=== PATIENT | male | born 1975 | race Caucasian/White ===

== ENCOUNTER 2020-04-28 18:19 | Inpatient (IN) | payer BC ==
[~2020-04-28] VITALS: Ht 172.7 cm; Wt 93.1 kg
--- NOTE | 2020-04-28 18:43 | NUR ---
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
[2020-04-28] MEDS ORDERED: ONDANSETRON 2MG/ML, 2ML ONE (19:16)
[2020-04-28] MEDS ORDERED: NITROGLYCERIN SINGLE TAB 0.4 MG SL ONE (19:16)
[2020-04-28] MEDS ORDERED: MORPHINE SULFATE 4 MG/ML, 1ML ONE (19:17)
[2020-04-28 19:25] LABS: BASOPHILS # (AUTO) 0.04 x10^3/uL (0-0.1); BASOPHILS % (AUTO) 1 % (0-1); EOSINOPHILS # (AUTO) 0.03 x10^3/uL (0-0.4); EOSINOPHILS % (AUTO) 0 % (1-7); LYMPHOCYTES # (AUTO) 1.52 x10^3/uL (1-3.4); LYMPHOCYTES % (AUTO) 17 % (22-44); MD NO; MEAN CORPUSCULAR HEMOGLOBIN 30.8 pg (27.5-34.5); MEAN CORPUSCULAR HGB CONC 33.7 g/dL (33.2-36.2); MEAN CORPUSCULAR VOLUME 91.4 fL (81-97); MEAN PLATELET VOLUME 8.3 fL (7.4-10.4); MONOCYTES # (AUTO) 0.48 x10^3/uL (0.2-0.8); MONOCYTES % (AUTO) 5 % (2-9); NEUTROPHILS # (AUTO) 6.91 x10^3/uL (1.8-6.8); NEUTROPHILS % (AUTO) 77 % (42-75); PLATELET COUNT 227 x10^3/uL (130-400); RED BLOOD COUNT 4.96 x10^6/uL (4.38-5.82); RED CELL DISTRIBUTION WIDTH 13.8 % (9.4-14.8)
[2020-04-28] MEDS ORDERED: MORPHINE SULFATE 4 MG/ML, 1ML IVPush PRN (19:30)
[2020-04-28] MEDS ORDERED: SODIUM CHLORIDE FLUSH 10ML SYR IVF ONE (19:30)
[2020-04-28] MEDS ORDERED: NITROGLYCERIN SINGLE TAB 0.4 MG SL PRN (19:30)
[2020-04-28] MEDS ORDERED: ONDANSETRON 2MG/ML, 2ML IVPush ONE (19:30)
[2020-04-28 19:31] LABS: ALANINE AMINOTRANSFERASE 21 U/L (12-78); ALBUMIN 3.9 g/dL (3.4-5.0); ANION GAP 7 mmol/L (5-15); CALCIUM 9.3 mg/dL (8.5-10.1); CHLORIDE 112 mmol/L (98-107); CREATININE 0.84 mg/dL (0.7-1.3)
[2020-04-28 19:36] LABS: ALKALINE PHOSPHATASE 51 U/L (45-117); BILIRUBIN,TOTAL 0.8 mg/dL (0.2-1.0); TOTAL PROTEIN 7.3 g/dL (6.4-8.2); TROPONIN I < 0.015 ng/mL (0.000-0.045)
[2020-04-28] MEDS ORDERED: morphine SULFATE 10 MG/ML, 1ML IVPush PRN (21:30)
[2020-04-28] MEDS ORDERED: POLYETHYLENE GLYCOL 17 GM PACKET PO PRN (21:30)
[2020-04-28] MEDS ORDERED: ONDANSETRON ODT 4 MG PO PRN (21:30)
[2020-04-28] MEDS ORDERED: BISACODYL 10 MG SUPP PR PRN (21:30)
[2020-04-28] MEDS ORDERED: NITROGLYCERIN 0.4 MG BOTTLE (25 TABS) SL PRN (21:30)
[2020-04-28 21:50] VITALS: BP 158/94
[2020-04-28 22:11] LABS: FREE T4 (FREE THYROXINE) 1.07 ng/dL (0.76-1.46)
[2020-04-28] MEDS: SODIUM CHLORIDE FLUSH 10ML SYR IVF SCH (22:42)
[2020-04-28] MEDS: HEPARIN 5,000 UNITS/ML, 1ML SQ SCH (22:42)
[2020-04-28] MEDS: ACETAMINOPHEN 325 MG TABLET PO PRN (22:48)
[2020-04-29 01:28] LABS: TROPONIN I < 0.015 ng/mL (0.000-0.045)
[2020-04-29 03:31] VITALS: BP 125/81
[2020-04-29] MEDS: HEPARIN 5,000 UNITS/ML, 1ML SQ SCH ×2 (05:38→13:50)
[2020-04-29] MEDS ORDERED: ASPIRIN 81 MG TABLET EC PO SCH (06:00)
[2020-04-29 06:44] VITALS: BP 153/91
[2020-04-29] MEDS: SODIUM CHLORIDE FLUSH 10ML SYR IVF SCH (08:17)
[2020-04-29] MEDS: ACETAMINOPHEN 325 MG TABLET PO PRN (08:17)
[2020-04-29 08:29] LABS: CHOLESTEROL, TOTAL 150 mg/dL (140-239); TRIGLYCERIDES 114 mg/dL (50-200); VLDL CHOLESTEROL 23 mg/dL (0-25)
[2020-04-29 08:32] LABS: HDL CHOLESTEROL (DIRECT) 49 mg/dL (40-60); TROPONIN I < 0.015 ng/mL (0.000-0.045)
[2020-04-29] MEDS ORDERED: SENNA/DOCUSATE TABLET PO SCH (09:00)
[2020-04-29] MEDS ORDERED: REGADENOSON 0.4 MG/5 ML SYRINGE ONE (09:14)
[2020-04-29 10:55] LABS: HDL CHOL % 33 % (26-37); LDL CHOLESTEROL,CALCULATED 78 mg/dL (54-169); LDL/HDL RATIO 1.6 (0.5-3.0)
[2020-04-29 10:56] LABS: CHOL/HDL RATIO 3.1
[2020-04-29 12:38] VITALS: BP 135/91
[2020-04-29] MEDS ORDERED: OMNIPAQUE 350 MG/ML, 100ML BOTTLE ONE (17:54)
== END 2020-04-29 19:48 | disposition home or self-care (01) | DRG 311 ==
LOC: ED 20:01 → EDIP 20:06 → 5SO 21:12
PROVIDERS: ADMIT Family Medicine; ATTEND Internal Medicine
DX: I24.9 Acute ischemic heart disease, unspecified (principal); Z80.9 Family history of malignant neoplasm, unspecified; Z83.3 Family history of diabetes mellitus; Z87.891 Personal history of nicotine dependence; Z98.84 Bariatric surgery status; Z90.49 Acquired absence of other specified parts of digestive tract
CPT/HCPCS: 36415; 71045; 71275; 78452; 80053; 80061; 83690; 83880; 84439; 84443; 84484; 85025; 93005; 93017; 96374; 99285; G0378; J1644; J2405; J2785; Q9967; A9502; J2270